=== PATIENT | male | born 2000 | race Caucasian/White ===

== ENCOUNTER 2023-11-19 21:12 | Emergency (ER) | payer OTHER ==
[~2023-11-19] VITALS: Ht 185.4 cm; Wt 131.5 kg
[2023-11-19 21:40] VITALS: TEMP 98.4
[2023-11-19 21:41] VITALS: BP 133/79; O2SAT 98
== END 2023-11-19 22:20 | disposition left against medical advice (07) ==
LOC: ER 21:29
DX: R00.2 Palpitations (principal); Z53.21 Procedure and treatment not carried out due to patient leaving prior to being seen by health care provider